=== PATIENT | female | born 1955 | race Caucasian/White ===

== ENCOUNTER 2022-06-09 11:14 | Outpatient (CLI) | payer MEDICARE, SELFPAY ==
--- NOTE | 2022-06-09 11:30 | CRLHL7_ITS ---
For Patients: As a result of the Century Cures Act, medical imaging exams and procedure reports are released immediately into your electronic medical record. You may view this report before your referring provider. If you have questions, please contact your health care provider. BILATERAL SCREENING MAMMOGRAM WITH COMPUTER-AIDED DETECTION TECHNIQUE: CC and MLO views were obtained. These mammographic images have been obtained using full-field digital technique. These mammographic images were interpreted with the benefit of computer-aided detection. COMPARISON FILM: 09/10/2020, 11/15/2018, 12/24/2016. FINDINGS: The breasts are almost entirely fatty IMPRESSION: There is no radiographic evidence for malignancy. ASSESSMENT: BI-RADS Category 2: Benign RECOMMENDATION: Routine screening mammogram in 1 year. A lay language report of this examination will be provided to the patient. Nghia Hernandez M.D. Diagnostic Radiologist [email or web address] tavares/Dictated by: Nghia Hernandez MD @ 06/10/2022 9:17:00 AM (Electronically Signed)
== END 2022-06-09 11:15 | disposition home or self-care (01) ==
LOC: MAMMO 11:20
PROVIDERS: Visit Provider Family Medicine
DX: Z12.31 Encounter for screening mammogram for malignant neoplasm of breast (principal); R92.2 Inconclusive mammogram
CPT/HCPCS: 77063; 77067

== ENCOUNTER 2022-06-11 08:12 | Outpatient (CLI) | payer MEDICARE, SELFPAY ==
[2022-06-11 13:25] LABS: Chloride* 105 mmol/L (96-114)
[2022-06-11 13:26] LABS: Albumin* 4.5 g/dL (3.3-5.0); Sodium* 139 mmol/L (135-149)
[2022-06-11 13:28] LABS: Carbon Dioxide* 28 mmol/L (20-32); Cholesterol* 174 mg/dL (90-199); Creatinine* 0.8 mg/dL (0.5-1.5); Estimated Glomerular Filt Rate 82 ml/min
[2022-06-11 13:29] LABS: Alanine Aminotransferase* 24 U/L (4-35); Alkaline Phosphatase* 49 U/L (40-150); Aspartate Amino Transferase* 40 U/L (12-35); Bilirubin Total* 0.5 mg/dL (0.1-1.5); Blood Urea Nitrogen* 13 mg/dL (7-30); Calcium* 9.4 mg/dL (8.4-10.6); Glucose* 90 mg/dL (60-115); Total Protein* 7.4 g/dL (6.0-8.3); Triglycerides* 84 mg/dL (40-149)
[2022-06-11 13:30] LABS: HDL Cholesterol* 70 mg/dL (>=50); LDL Cholesterol Calculated 87 mg/dL (<100)
== END 2022-06-11 08:13 | disposition home or self-care (01) ==
LOC: FRMREF 08:13
PROVIDERS: PCP Family Medicine; Visit Provider Family Medicine
DX: I25.10 Atherosclerotic heart disease of native coronary artery without angina pectoris (principal)
CPT/HCPCS: 80053; 80061

== ENCOUNTER 2022-11-16 19:40 | Outpatient (CLI) | payer MEDICARE, SELFPAY ==
--- NOTE | 2022-11-26 14:43 | W.PM.SLEEP ---
Sleep Study Details Details Interpreting Provider: Aron Rizo MD Date of Sleep Study: 11/16/22 Sleep Study Details: STUDY TYPE:? Home ? BMI:? 22.5 ORDERING PROVIDER:? Sav INDICATION:? Concerns about sleep apnea ? SLEEP SUMMARY:? 360.1 monitored minutes RESPIRATORY SUMMARY:? AHI 90. Note entire study was done in the supine position Low oxygen 80 90.3% of the study oxygen was less than 90%, 0.1% of the study oxygen less than 85% Snoring 3.1% PERIODIC LIMB MOVEMENTS OF SLEEP:? Not recorded CARDIAC:? 59-148, mean 71 IMPRESSION:? Severe obstructive sleep apnea with an AHI of 90 and significant desaturation noted during the study RECOMMENDATION: In-lab titration is recommended. Alternative would be AutoSet CPAP at 4-18 with close follow-up. Once effective therapy is established overnight oximetry should be performed
== END 2022-11-16 19:41 | disposition home or self-care (01) ==
LOC: SLEEP 19:40
PROVIDERS: PCP Physician Assistant Medical; Visit Provider Physician Assistant Medical
DX: G47.33 Obstructive sleep apnea (adult) (pediatric) (principal)
CPT/HCPCS: 95806

== ENCOUNTER 2023-07-01 08:00 | Outpatient (CLI) | payer MEDICARE, SELFPAY | END 2023-07-01 08:01 | disposition home or self-care (01) | LOC: NFLDREF 07-03 10:53 | PROVIDERS: PCP Physician Assistant Medical; Referring Provider Physician Assistant Medical; Visit Provider Physician Assistant Medical | DX: I10 Essential (primary) hypertension (principal); I42.9 Cardiomyopathy, unspecified; E87.1 Hypo-osmolality and hyponatremia | CPT/HCPCS: 80053; 80061; 84443 ==

== ENCOUNTER 2023-10-06 13:11 | Outpatient (CLI) | payer MEDICARE, SELFPAY ==
--- NOTE | 2023-10-06 13:30 | CRLHL7_ITS ---
For Patients: As a result of the Century Cures Act, medical imaging exams and procedure reports are released immediately into your electronic medical record. You may view this report before your referring provider. If you have questions, please contact your health care provider. DXA BONE MINERAL DENSITY STUDY Reason for exam: Screening. Current height (in): 64.0. Weight (lb): 130.0. Menopause age: 52. Ethnicity: White. 1. Have you had a previous hip or vertebral fracture? No. 2. Have you had any fractures during your adult life which did not result from significant trauma (e.g., auto accident)? No. 3. Did either of your parents have a hip fracture? Yes. 4. Do you smoke? No. 5. Have you ever taken Glucocorticoids? No. 6. Do you have rheumatoid arthritis? No. 7. Do you have secondary osteoporosis? No. 8. Do you drink 3 or more alcoholic drinks per day? No. 9. Are you being treated for osteoporosis? No. 10. Have you ever taken any of the following medications: Actonel, Evista, Fosamax, Miacalcin, Reclast, Boniva, Forteo, HRT (i.e. estrogen/hormone therapy), Protelos, Prolia, Vitamin D, Calcium, other ??? please specify. ANSWER: Yes, vitamin D. 11. Do you have any of the following medical conditions: Anorexia or bulimia, asthma or emphysema, end stage renal disease, hyperparathyroidism, any seizure disorders, cancer, inflammatory bowel diseases, hysterectomy, other ??? please specify. ANSWER: No. 12. What was your maximum height (inches)? 64.5. 13. Do you perform weight bearing exercise regularly? Yes. 14. Do you regularly consume dairy products? Yes. 15. Do you drink caffeinated beverages? No. 16. At what age did your period start? 15. 17. Are you premenopausal? No. 18. How many full term pregnancies have you had? 2. 19. Have you ever missed your period for more than 6 months in a row (not including or menopause)? No. TECHNIQUE: Bone mineral density study was performed using the [employer]. FINDINGS: The results of the study expressed as bone mineral density (BMD) are as follows: Lumbar spine L1 to L4: BMD: 0.859 g/cm2. T-score: -1.7. Z-score: 0.2. Neck Left: BMD: 0.633 g/cm2. T-score: -1.9. Z-score: -0.3. Right: BMD: 0.624 g/cm2. T-score: -2.0. Z-score: -0.4. Total Left: BMD: 0.804 g/cm2. T-score: -1.1. Z-score: 0.2. Right: BMD: 0.786 g/cm2. T-score: -1.3. Z-score: 0.0. IMPRESSION: Osteopenia. *Comparison exams done prior to 04/2020 were performed on different unit, [employer] [facility] [employer]. FRAX 10-year Fracture Risk Major Osteoporotic Fracture: 18 percent Hip Fracture: 2.4 percent Reported Risk Factors: [place] () Neck BMD=0.624, BMI=22.3, parental fracture. Nghia Hernandez M.D. Diagnostic Radiologist [email or web address] DSM/pjt PT/Dictated by: Nghia Hernandez MD @ 10/11/2023 6:37:00 AM (Electronically Signed)
--- NOTE | 2023-10-06 14:00 | CRLHL7_ITS ---
For Patients: As a result of the Century Cures Act, medical imaging exams and procedure reports are released immediately into your electronic medical record. You may view this report before your referring provider. If you have questions, please contact your health care provider. BILATERAL SCREENING MAMMOGRAM WITH COMPUTER-AIDED DETECTION TECHNIQUE: CC and MLO views were obtained. These mammographic images have been obtained using full-field digital technique. These mammographic images were interpreted with the benefit of computer-aided detection. COMPARISON FILM: 06/09/22, 09/10/20, 11/15/18. FINDINGS: The breasts are almost entirely fatty. IMPRESSION: There is no radiographic evidence for malignancy. ASSESSMENT: BI-RADS Category 2: Benign RECOMMENDATION: Routine screening mammogram in 1 year. A lay language report of this examination will be provided to the patient. JACOBO ASTORGA M.D. Diagnostic/Nuclear Medicine Radiologist [email or web address] DEENA:[email or web address] Transcribed: 10/07/2023, 3:[address]/Dictated by: Jacobo Astorga MD @ 10/07/2023 10:14:00 AM (Electronically Signed)
== END 2023-10-06 13:12 | disposition home or self-care (01) ==
LOC: RAD 13:12
PROVIDERS: PCP Physician Assistant Medical; Visit Provider Physician Assistant Medical
DX: Z12.31 Encounter for screening mammogram for malignant neoplasm of breast (principal); Z13.820 Encounter for screening for osteoporosis; M85.89 Other specified disorders of bone density and structure, multiple sites; Z78.0 Asymptomatic menopausal state
CPT/HCPCS: 77067; 77080

== ENCOUNTER 2024-08-17 07:59 | Outpatient (CLI) | payer MEDICARE, SELFPAY | END 2024-08-17 08:00 | disposition home or self-care (01) | LOC: NFLDREF 08-18 09:25 | PROVIDERS: PCP Physician Assistant Medical; Referring Provider Physician Assistant Medical; Visit Provider Physician Assistant Medical | DX: E78.5 Hyperlipidemia, unspecified (principal) | CPT/HCPCS: 80061; 84450; 84460 ==

== ENCOUNTER 2024-12-07 07:39 | Outpatient (CLI) | payer MEDICARE, BC, SELFPAY | END 2024-12-07 07:40 | disposition home or self-care (01) | PROVIDERS: PCP Physician Assistant Medical; Visit Provider Physician Assistant Medical | DX: E78.5 Hyperlipidemia, unspecified (principal); I10 Essential (primary) hypertension; Z13.29 Encounter for screening for other suspected endocrine disorder | CPT/HCPCS: 80053; 80061; 84443 ==

== ENCOUNTER 2025-03-21 14:36 | Outpatient (CLI) | payer MEDICARE, BC, SELFPAY ==
--- NOTE | 2025-03-21 15:00 | CRLHL7_ITS ---
For Patients: As a result of the Century Cures Act, medical imaging exams and procedure reports are released immediately into your electronic medical record. You may view this report before your referring provider. If you have questions, please contact your health care provider. INDICATION: BILATERAL SCREENING MAMMOGRAM, ASYMPTOMATIC 70 Y/O FEMALE COMPARISON: 09/10/2020, 06/28/2022, 10/06/2023 TECHNIQUE: Digital mammogram in CC and MLO projections including computer-aided detection (CAD) and tomosynthesis. BREAST COMPOSITION: The breasts are almost entirely fatty. FINDINGS: No suspicious findings. ASSESSMENT: BI-RADS 2 Benign RECOMMENDATION: Annual screening mammogram. A lay language report of this examination will be provided to the patient. Dictated by: Nghia Hernandez MD @ 03/22/2025 09:14:44 (Electronically Signed)
--- NOTE | 2025-03-21 15:30 | CRLHL7_ITS ---
For Patients: As a result of the Century Cures Act, medical imaging exams and procedure reports are released immediately into your electronic medical record. You may view this report before your referring provider. If you have questions, please contact your health care provider. XR DXA Bone Mineral Density (BMD) Current height (in): 64. Weight (lb): 130.0. Menopause age: 52. Ethnicity: White. 1. Have you had a previous hip or vertebral fracture? No. 2. Have you had any fractures during your adult life which did not result from significant trauma (e.g., auto accident)? No. 3. Did either of your parents have a hip fracture? Yes. 4. Do you smoke? No. 5. Have you ever taken Glucocorticoids? No. 6. Do you have rheumatoid arthritis? No. 7. Do you have secondary osteoporosis? No. 8. Do you drink 3 or more alcoholic drinks per day? No. 9. Are you being treated for osteoporosis? No. 10. Have you ever taken any of the following medications: Actonel, Evista, Fosamax, Miacalcin, Reclast, Boniva, Forteo, HRT (i.e. estrogen/hormone therapy), Protelos, Prolia, Vitamin D, Calcium, other ??? please specify. ANSWER: Yes, Vitamin D. 11. Do you have any of the following medical conditions: Anorexia or bulimia, asthma or emphysema, end stage renal disease, hyperparathyroidism, any seizure disorders, cancer, inflammatory bowel diseases, hysterectomy, other ??? please specify. ANSWER: No. 12. What was your maximum height (inches)? 64.5. 13. Do you perform weight bearing exercise regularly? Yes. 14. Do you regularly consume dairy products? Yes. 15. Do you drink caffeinated beverages? Yes. If female: 16. At what age did your period start? 15. 17. Are you premenopausal? No. 18. How many full term pregnancies have you had? 2. 19. Have you ever missed your period for more than 6 months in a row (not including or menopause)? No. TECHNIQUE: Bone mineral density study was performed using the [employer]. FINDINGS: The results of the study expressed as bone mineral density (BMD) are as follows: Lumbar spine L1 to L4: BMD: 0.863 g/cm2. T-score: -1.7. Z-score: 0.3. Neck Left: BMD: 0.584 g/cm2. T-score: -2.4 . Z-score: -0.7. Right: BMD: 0.554 g/cm2. T-score: -2.7 . Z-score: -1.0. Total Left: BMD: 0.781 g/cm2. T-score: -1.3 . Z-score: 0.1. Right: BMD: 0.745 g/cm2. T-score: -1.6 . Z-score: -0.2. IMPRESSION: Osteoporosis. *Comparison exams done prior to 04/2020 were performed on different unit, [employer]. COMPARISON: Compared with scan of 10/06/2023, the bone mineral density has increased by 0.5 percent at the spine and decreased by 4.0 percent at the hip. Nghia Hernandez M.D. Diagnostic Radiologist [email or web address] CIERRA/[email or web address] JR/Dictated by: Nghia Hernandez MD @ 03/22/2025 9:34:00 AM (Electronically Signed)
== END 2025-03-21 14:37 | disposition home or self-care (01) ==
LOC: MAMMO 14:37
PROVIDERS: PCP Physician Assistant Medical; Visit Provider Physician Assistant Medical
DX: Z12.31 Encounter for screening mammogram for malignant neoplasm of breast (principal); Z78.0 Asymptomatic menopausal state; M81.0 Age-related osteoporosis without current pathological fracture
CPT/HCPCS: 77063; 77067; 77080